=== PATIENT | female | born 1960 | race Two or more races ===

== ENCOUNTER 2017-08-04 11:13 | Day surgery (SDC) | payer OTHER, MEDICAID ==
[2017-08-04] MEDS ORDERED: CEFAZOLIN 1 GM/50 ML (PMX) 50 ML IVPB (13:22)
[2017-08-04] MEDS ORDERED: FENTAnyl 50 MCG/ML VIAL (14:01)
[2017-08-04] MEDS ORDERED: MIDAZOLAM 1 MG/ML 2 ML INJ ×2 (14:01)
== END 2017-08-04 16:05 | disposition home or self-care (01) ==
LOC: GIL 11:13
DX: Z12.11 Encounter for screening for malignant neoplasm of colon (principal); D12.3 Benign neoplasm of transverse colon; D17.5 Benign lipomatous neoplasm of intra-abdominal organs; J45.909 Unspecified asthma, uncomplicated
CPT/HCPCS: 45385; 88305

== ENCOUNTER 2017-10-02 11:22 | Day surgery (SDC) | payer OTHER ==
[2017-10-02] MEDS ORDERED: SOD CHLORIDE 0.9% 1,000 ML IV (13:00)
[2017-10-02] MEDS ORDERED: CLINDAMYCIN 600 MG/D5W (PMX) 50 ML IVPB ×2 (13:00→16:05)
[2017-10-02] MEDS ORDERED: KETOROLAC 30 MG INJ (15:50)
[2017-10-02] MEDS ORDERED: ACETAMINOPHEN 1000MG/100ML IV 100 ML ×2 (15:50)
[2017-10-02] MEDS: LIDOCAINE 1%/EPI 30 ML INJ (16:18)
[2017-10-02] MEDS: BUPIVACAINE 0.25% (MPF) 30 ML INJ (16:18)
[2017-10-02] MEDS ORDERED: ONDANSETRON 4 MG INJ IV (17:00)
[2017-10-02] MEDS ORDERED: IBUPROFEN 600 MG TAB PO (17:00)
== END 2017-10-02 17:52 | disposition home or self-care (01) ==
LOC: SDS 11:22
DX: D16.4 Benign neoplasm of bones of skull and face (principal)
CPT/HCPCS: 21299